=== PATIENT | female | born 2000 | race Caucasian/White ===

== ENCOUNTER 2019-05-17 13:19 | Emergency (ER) | payer BC ==
[~2019-05-17] VITALS: Ht 162.6 cm; Wt 59.0 kg
[2019-05-17 14:14] LABS: BASO # 0.1 x10^3/uL (0.0-0.2); BASO % 1 % (0-3); EOS # 0.1 x10^3/uL (0.0-0.7); EOS % 1 % (0-3); HEMATOCRIT 46.2 % (36.0-47.0); HEMOGLOBIN 15.5 g/dL (12.0-15.5); LYMPH # 1.7 x10^3/uL (1.0-4.8); LYMPH % 15 % (24-48); MEAN CORPUSCULAR HEMOGLOBIN 33 pg (25-35); MEAN CORPUSCULAR HGB CONC 34 g/dL (31-37); MEAN CORPUSCULAR VOLUME 98 fL (79-100); MONO # 0.7 x10^3/uL (0.0-1.1); MONO % 6 % (0-9); NEUT # 8.5 x10^3uL (1.8-7.7); NEUT % 77 % (31-73); PLATELET COUNT 180 x10^3/uL (140-400); RED BLOOD COUNT 4.72 x10^6/uL (3.50-5.40); WHITE BLOOD COUNT 11.1 x10^3/uL (4.0-11.0)
[2019-05-17 14:24] LABS: BACTERIA,URINE 0 /HPF (0-FEW); BILIRUBIN,URINE NEG (NEG); CLARITY,URINE CLEAR; COLOR,URINE YELLOW; GLUCOSE,URINE NEG (NEG); NITRITE,URINE NEG (NEG); SQUAMOUS EPITHELIAL CELL,UR FEW /LPF; UROBILINOGEN,URINE 0.2 mg/dL (0.2 mg/dL); WBC,URINE OCC /HPF (0-4)
[2019-05-17] MEDS ORDERED: LEVO25TA4 PO (14:25)
[2019-05-17] MEDS ORDERED: NORE1TAB28 PO (14:25)
[2019-05-17 14:30] LABS: ALBUMIN 3.8 g/dL (3.4-5.0); CREATININE 0.9 mg/dL (0.6-1.0); GFR 79.8; MAGNESIUM 1.9 mg/dL (1.8-2.4); POTASSIUM 3.2 mmol/L (3.5-5.1); TOTAL BILIRUBIN 0.3 mg/dL (0.2-1.0); TOTAL PROTEIN 7.6 g/dL (6.4-8.2)
--- NOTE | 2019-05-17 14:30 | RAD ---
PORTABLE CHEST 1V History: Fever, high blood pressure. COMPARISON: None FINDINGS: Cardiomediastinal silhouette is within normal limits. No evidence of infiltrate.. Blunting of the costophrenic angles, could be tiny effusions or due to diaphragmatic flattening from hyperexpansion or air trapping. No evidence of pneumothorax although the right costophrenic angle was not completely included on the image. Bones appear grossly intact. IMPRESSION: 1. Blunting of the costophrenic angles. Could be due to tiny pleural effusions, versus diaphragmatic flattening from hyperexpansion or air trapping. 2. No consolidating infiltrate. Electronically signed by: Rishi Chew MD (05/17/2019 2:27 PM) [facility]
--- NOTE | 2019-05-17 14:36 | PHYS DOC ---
Past History Past Medical History: Hypertension, Hypothyroid, Other Additional Past Medical Histor: lymphedema, Tristan's syndrome Past Surgical History: Tonsillectomy, Other Additional Past Surgical Histo: Adnoidectomy, Coarctation repair. Alcohol Use: None Drug Use: None Adult General Chief Complaint Chief Complaint: FEVER HPI HPI Patient is a 18-year-old female who presents from outpatient clinic with report of elevated blood pressure and fever. Patient states that she wasn't feeling very well last night and had been checking her blood pressure and found that it was in the 150s over 100s. That was why she had gone into the office today. Patient states that she does have a history of hypertension and had been on medication but was taken off in December of this year. She states that she has had a little bit of left shoulder discomfort and some mild epigastric discomfort that she relates as being GERD. She denies any actual chest pain and has no shortness of breath. Patient was reportedly febrile in the doctor's office but is afebrile at this time. Patient was not given any medications for fever or for blood pressure.[] Review of Systems Review of Systems Constitutional: Positive reported fever without chills [] Respiratory: Denies cough or shortness of breath [] Cardiovascular: No additional information not addressed in HPI [] GI: Denies abdominal pain, nausea, vomiting or diarrhea [] : Denies dysuria or hematuria [] Neurologic: Denies headache, focal weakness or sensory changes [] All other systems were reviewed and found to be within normal limits, except as documented in this note. Allergies Allergies Allergies Coded Allergies Type Severity Reaction Last Updated Verified No Known Drug Allergies 05/17/19 No Physical Exam Physical Exam Constitutional: Well developed, well nourished, no acute distress, non-toxic appearance. [] HENT: Normocephalic, atraumatic, bilateral external ears normal, oropharynx moist, no oral exudates, nose normal. [] Eyes: PERRLA, EOMI, conjunctiva normal, no discharge. [] Neck: Normal range of motion, no tenderness, supple, no stridor. [] Cardiovascular: Regular rate and rhythm[] Lungs & Thorax: Bilateral breath sounds clear to auscultation [] Abdomen: Bowel sounds normal, soft, no tenderness. [] Skin: Warm, dry, no erythema, no rash. [] Extremities: No tenderness, no cyanosis, no clubbing, ROM intact, no edema. [] Neurologic: Alert and oriented X 3, no focal deficits noted. [] Current Patient Data Vital Signs Vital Signs Date Time Temp Pulse Resp B/P (MAP) Pulse Ox O2 Delivery O2 Flow Rate FiO2 05/17/19 14:20 107 14 100 Room Air 05/17/19 14:08 152/102 (119) 05/17/19 13:30 98.1 Lab Results Laboratory Tests Test 05/17/19 13:50 05/17/19 14:01 Urine Collection Type Void Urine Color Yellow Urine Clarity Clear Urine pH 6.0 Urine Specific [place] 1.010 Urine Protein Neg (NEG-TRACE) Urine Glucose (UA) Neg mg/dL (NEG) Urine Ketones (Stick) Neg mg/dL (NEG) Urine Blood Mod (NEG) Urine Nitrite Neg (NEG) Urine Bilirubin Neg (NEG) Urine Urobilinogen Dipstick 0.2 mg/dL (0.2 mg/dL) Urine Leukocyte Esterase Neg (NEG) Urine RBC 1-2 /HPF (0-2) Urine WBC Occ /HPF (0-4) Urine Squamous Epithelial Cells Few /LPF Urine Bacteria 0 /HPF (0-FEW) White Blood Count 11.1 x10^3/uL (4.0-11.0) H Red Blood Count 4.72 x10^6/uL (3.50-5.40) Hemoglobin 15.5 g/dL (12.0-15.5) Hematocrit 46.2 % (36.0-47.0) Mean Corpuscular Volume 98 fL (79-100) Mean Corpuscular Hemoglobin 33 pg (25-35) Mean Corpuscular Hemoglobin Concent 34 g/dL (31-37) Red Cell Distribution Width 13.0 % (11.5-14.5) Platelet Count 180 x10^3/uL (140-400) Neutrophils (%) (Auto) 77 % (31-73) H Lymphocytes (%) (Auto) 15 % (24-48) L Monocytes (%) (Auto) 6 % (0-9) Eosinophils (%) (Auto) 1 % (0-3) Basophils (%) (Auto) 1 % (0-3) Neutrophils # (Auto) 8.5 x10^3uL (1.8-7.7) H Lymphocytes # (Auto) 1.7 x10^3/uL (1.0-4.8) Monocytes # (Auto) 0.7 x10^3/uL (0.0-1.1) Eosinophils # (Auto) 0.1 x10^3/uL (0.0-0.7) Basophils # (Auto) 0.1 x10^3/uL (0.0-0.2) Sodium Level 143 mmol/L (136-145) Potassium Level 3.2 mmol/L (3.5-5.1) L Chloride Level 105 mmol/L (98-107) Carbon Dioxide Level 22 mmol/L (21-32) Anion Gap 16 (6-14) H Blood Urea Nitrogen 7 mg/dL (7-20) Creatinine 0.9 mg/dL (0.6-1.0) Estimated GFR (Cockcroft-Gault) 79.8 BUN/Creatinine Ratio 8 (6-20) Glucose Level 91 mg/dL (70-99) Calcium Level 9.0 mg/dL (8.5-10.1) Magnesium Level 1.9 mg/dL (1.8-2.4) Total Bilirubin 0.3 mg/dL (0.2-1.0) Aspartate Amino Transferase (AST) 23 U/L (15-37) Alanine Aminotransferase (ALT) 29 U/L (14-59) Alkaline Phosphatase 60 U/L (46-116) Total Protein 7.6 g/dL (6.4-8.2) Albumin 3.8 g/dL (3.4-5.0) Albumin/Globulin Ratio 1.0 (1.0-1.7) EKG EKG NSR[] Radiology/Procedures Radiology/Procedures [] Impressions: PROCEDURE: PORTABLE CHEST 1V PORTABLE CHEST 1V History: Fever, high blood pressure. COMPARISON: None FINDINGS: Cardiomediastinal silhouette is within normal limits. No evidence of infiltrate.. Blunting of the costophrenic angles, could be tiny effusions or due to diaphragmatic flattening from hyperexpansion or air trapping. No evidence of pneumothorax although the right costophrenic angle was not completely included on the image. Bones appear grossly intact. IMPRESSION: 1. Blunting of the costophrenic angles. Could be due to tiny pleural effusions, versus diaphragmatic flattening from hyperexpansion or air trapping. 2. No consolidating infiltrate. Electronically signed by: Rishi Chew MD (05/17/2019 2:27 PM) [facility] Course & Med Decision Making Course & Med Decision Making Pertinent Labs and Imaging studies reviewed. (See chart for details) [] Dragon Disclaimer Dragon Disclaimer This electronic medical record was generated, in whole or in part, using a voice recognition dictation system. Departure Departure: Impression: Primary Impression: Hypertension Disposition: 01 HOME, SELF-CARE Condition: STABLE Referrals: ANALI MUÑOZ (PCP) Patient Instructions: Hypertension Additional Instructions: Follow-up with Dr. Muñoz tomorrow morning in regards to your blood pressure. Problem Qualifiers Primary Impression: Hypertension Hypertension type: unspecified Qualified Codes: I10 - Essential (primary) hypertension DEBO SARMIENTO Jr. DO May 17, 2019 14:36
[2019-05-17] MEDS ORDERED: cloNIDine HCL 0.1 MG TABLET PO ONE (15:00)
[2019-05-17] MEDS ORDERED: POTASSIUM CHLORIDE 20 MEQ TABLET.ER. PO ONE (15:00)
--- NOTE | 2019-05-17 15:38 | EKG ---
[address] [address] Test Date: 2019-05-17 Test Time: 13:31:27 Pat Name: ZAHRA BAILEY Department: Room: Gender: F Title Search Manager: : 2000 Requested By: DEBO SARMIENTO Order Number: [id number] Reading MD: Measurements Intervals [place] Rate: 98 P: 54 HI: 94 QRS: 45 QRSD: 96 T: 49 QT: 360 QTc: 462 Interpretive Statements SINUS RHYTHM LEFT ATRIAL ABNORMALITY ABNORMAL ECG RI6.01 No previous ECG available for comparison
[2019-05-17 15:58] VITALS: BP 144/99
== END 2019-05-17 15:58 | disposition home or self-care (01) ==
LOC: ER 13:19
DX: I10 Essential (primary) hypertension (principal); R50.9 Fever, unspecified; E03.9 Hypothyroidism, unspecified
CPT/HCPCS: 36415; 71045; 80053; 81001; 83735; 85025; 93005; 99285